=== PATIENT | female | born 1960 | race Caucasian/White ===

== ENCOUNTER 2023-11-01 06:29 | Inpatient (IN) | payer SELFPAY ==
[2023-11-01] MEDS ORDERED: Nitroglycerin 0.4 MG TAB (25 Tab Bottle) SL PRN (19:12)
[2023-11-01] MEDS ORDERED: Acetaminophen 650 MG Suppository PR PRN (19:12)
[2023-11-01] MEDS ORDERED: Acetaminophen 325 MG TAB PO PRN (19:12)
[2023-11-01 19:27] VITALS: BMI 32.8
[2023-11-01 19:41] LABS: Hematocrit 38.9 % (36.0-47.0); Hemoglobin 13.2 g/dL (12.0-16.0); Platelet Count 194 10x3/uL (130-400)
[2023-11-01 20:08] LABS: Troponin I 3.572 ng/mL (< 0.028)
[2023-11-01] MEDS: Melatonin 3 MG TAB PO SCH (20:38)
[2023-11-01] MEDS: Famotidine 20 MG TAB PO SCH (20:39)
[2023-11-01] MEDS: hydrOXYzine 25 MG TAB PO PRN (20:39)
[2023-11-01] MEDS: Morphine 4 MG/ML VIAL SLOW IVP SCH (20:39)
[2023-11-01] MEDS: Heparin 10,000 UNITS/ 10 ML VIAL SLOW IVP SCH (20:57)
[2023-11-02] MEDS: Nitroglycerin 2% Ointment 1 INCH/1 GM Packet TOP SCH (00:24)
[2023-11-02] MEDS: Famotidine/PF 20 mg/2ml Vial SLOW IVP SCH (00:24)
[2023-11-02 00:34] LABS: Troponin I 3.937 ng/mL (< 0.028)
[2023-11-02 03:50] LABS: A1c 170.348 g/dL; Hb (HGBA1c) 4481.3842 umol/L; Hemoglobin A1c 5.6 % (4.0-6.0)
[2023-11-02 03:58] LABS: Troponin I 3.009 ng/mL (< 0.028)
[2023-11-02 04:32] LABS: Cardiac Risk 3.1 (Less than 4.5)
[2023-11-02] MEDS: Morphine 2 MG/ML VIAL SLOW IVP PRN (09:10)
[2023-11-02] MEDS ORDERED: Communication Order-Pharmacy FS SCH ×2 (11:15→17:45)
[2023-11-02 11:57] LABS: #Basophils 0.06 10x3/uL (0.0-0.2); %Basophils 1.2 % (0.0-1.0); %Eosinophils 1.4 % (0.0-10.0); %Lymphocytes 24.2 % (21.0-51.0); %Monocytes 8.4 % (0.0-10.0); %Neutrophils 64.6 % (42.0-75.0); Hematocrit 38.7 % (36.0-47.0); Hemoglobin 13.2 g/dL (12.0-16.0); Mean Corpuscular HGB CONC 34.1 g/dL (32.0-36.0); Mean Corpuscular Hemoglobin 29.7 pg (27.0-31.0); Mean Corpuscular Volume 87.2 fL (78.0-98.0); Platelet Count 159 10x3/uL (130-400); Red Blood Cell (RBC) Count 4.44 mill/uL (4.20-5.40)
[2023-11-02 12:14] LABS: ALT (SGPT) 27 U/L (8-55); AST (SGOT) 43 U/L (5-34); Albumin 3.6 g/dL (3.4-4.8); Alkaline Phosphatase 75 U/L (40-110); Anion Gap 9 mmol/L (10-20); BUN (Urea Nitrogen) 8 mg/dL (9.8-20.1); Bilirubin, Total 0.8 mg/dL (0.2-1.2); Calc. Creatinine Clearance 109 mL/min (70-130); Calcium 8.8 mg/dL (7.8-10.44); Carbon Dioxide 23 mmol/L (23-31); Chloride 104 mmol/L (98-107); Estimated GFR 81; Globulin 2.9 g/dL (2.4-3.5); Glucose 162 mg/dL (80-115); Potassium 3.6 mmol/L (3.5-5.1); Protein, Total 6.5 g/dL (5.8-8.1); Sodium 132 mmol/L (136-145)
[2023-11-02] MEDS: Heparin 25,000 units/D5W 500 ML IVPB SCH (12:50)
[2023-11-02] MEDS: Aspirin 325 mg Enteric Coated Tablet PO SCH (18:42)
[2023-11-02] MEDS: Rosuvastatin 20 MG TAB PO SCH (20:26)
[2023-11-03] MEDS: Sodium Chloride 0.9% 500 ML IV SCH
[2023-11-03] MEDS ORDERED: Heparin 10,000 UNITS/ 10 ML VIAL ONE (06:21)
[2023-11-03] MEDS ORDERED: Nitroglycerin 50 MG/250 ML BOT 250 ML ONE (06:22)
[2023-11-03] MEDS: Aspirin 81 mg Enteric Coated Tablet PO SCH (06:35)
[2023-11-03] MEDS ORDERED: Midazolam HCl 2 mg/2 ml Vial ONE (07:04)
[2023-11-03] MEDS ORDERED: fentaNYL 50 mcg/mL 1 mL Vial ONE (07:04)
[2023-11-03] MEDS ORDERED: Sodium Chloride 0.9% 200 ML IV PRN (08:03)
[2023-11-03] MEDS ORDERED: Nitroglycerin 0.4 MG TAB (25 Tab Bottle) SL PRN (08:03)
[2023-11-03] MEDS: Clopidogrel Bisulfate 300 MG TAB PO SCH (08:28)
[2023-11-03] MEDS ORDERED: Iopamidol 370 76% 100 ML VIAL ONE (14:51)
[2023-11-03 15:33] VITALS: BP 135/72; TEMP 97.8
[2023-11-04] MEDS ORDERED: Clopidogrel Bisulfate 75 MG TAB PO SCH (09:00)
== END 2023-11-03 17:28 | disposition home or self-care (01) | DRG 282 ==
LOC: UNDOADMIN 06:29 → 2SW 06:29 → UNDOADMIN 18:06 → 2SW 18:06
PROVIDERS: ADMIT Internal Medicine; ATTEND Internal Medicine
PROC: 4A023N7 Measurement of Cardiac Sampling and Pressure, Left Heart, Percutaneous Approach (ICD-10-PCS; principal; 2023-11-03)
PROC: B2111ZZ Fluoroscopy of Multiple Coronary Arteries using Low Osmolar Contrast (ICD-10-PCS; 2023-11-03)
DX: I21.4 Non-ST elevation (NSTEMI) myocardial infarction (principal); I10 Essential (primary) hypertension; Z79.82 Long term (current) use of aspirin; Z79.899 Other long term (current) drug therapy
CPT/HCPCS: 36415; 80053; 80061; 83036; 83735; 83880; 84443; 85025; 85347; 85730; 93005; 93010; 93458; 93798; 99152; 99153; C1769; C1887; C1894; J1644; J2250; J2270; J2272; J3010; J7030; Q9967